=== PATIENT | female | born 1980 | race Caucasian/White ===

== ENCOUNTER 2020-04-21 15:54 | Emergency (ER) | payer OTHER | END 2020-04-21 17:15 | disposition left against medical advice (07) | LOC: ER1 15:54 | DX: Z53.21 Procedure and treatment not carried out due to patient leaving prior to being seen by health care provider (principal) ==

== ENCOUNTER 2021-12-26 14:04 | Emergency (ER) | payer OTHER ==
[2021-12-26 14:53] LABS: HEMOGLOBIN 14.9 gm/dl (12.3-15.3); RED BLOOD COUNT 4.91 M/UL (4.00-5.10); WHITE BLOOD COUNT 12.3 K/UL (4.5-11.0)
[2021-12-26 15:20] LABS: BUN/CREATININE RATIO 17 (0-10)
[2021-12-26] MEDS ORDERED: CEFUROXIME500 MG PO (17:43)
== END 2021-12-26 19:21 | disposition home or self-care (01) ==
LOC: ER1 14:04
PROVIDERS: Emergency Medicine
DX: N39.0 Urinary tract infection, site not specified (principal); Z87.442 Personal history of urinary calculi; E11.9 Type 2 diabetes mellitus without complications; Z98.84 Bariatric surgery status; Z88.0 Allergy status to penicillin
CPT/HCPCS: 80053; 81001; 84703; 85025; 96374; 99284; J0696